=== PATIENT | female | born 1960 | race Caucasian/White ===

== ENCOUNTER → 2016-09-09 | Outpatient (CLI) | payer BC ==
[2016-09-09 09:33] LABS: Basophils % (A) 1 %; CH 28.8; CHCM 33.4; Eosinophils # (A) 0.2 k/uL (0-0.7); Eosinophils % (A) 3 %; HCT 43.1 % (34.0-46.0); HDW 2.52; HGB 14.2 gm/dL (11.4-16.0); Luc # (Auto) 0.14; Luc % (Auto) 3; Lymphocytes % (A) 37 %; MCH 28.6 pg (25.0-35.0); MCV 86.7 fL (80.0-100.0); Monocytes # (A) 0.2 k/uL (0-1.0); Monocytes % (A) 4 %; Neutrophils # (A) 2.9 k/uL (1.3-7.7); Neutrophils % (A) 52 %; RBC 4.98 m/uL (3.80-5.40); RDW 12.9 % (11.5-15.5); WBC 5.5 k/uL (3.8-10.6); WBC (Perox) 5.62
[2016-09-09 10:14] LABS: Anion Gap 13 mmol/L; Blood Urea Nitrogen 18 mg/dL (7-17); Calcium 9.5 mg/dL (8.4-10.2); Carbon Dioxide 25 mmol/L (22-30); Chloride 106 mmol/L (98-107); Glucose 97 mg/dL (74-99); Non-African American GFR(MDRD) >60 (>60 ml/min/1.73 sqM); Potassium 4.2 mmol/L (3.5-5.1); Sodium 144 mmol/L (137-145); Total Protein 7.6 g/dL (6.3-8.2)
[2016-09-09 10:15] LABS: ALT 33 U/L (9-52); AST 21 U/L (14-36); Alkaline Phosphatase 67 U/L (38-126); Cholesterol 245 mg/dL (<200); HDL Cholesterol 53 mg/dL (40-60); Total Bilirubin 0.9 mg/dL (0.2-1.3); Triglycerides 121 mg/dL (<150)
== END | disposition home or self-care (01) ==
LOC: LABWHC1 08:31
PROVIDERS: ATTEND Family Medicine
DX: E78.5 Hyperlipidemia, unspecified (principal); I10 Essential (primary) hypertension
CPT/HCPCS: 36415; 80053; 80061; 84443; 85025

== ENCOUNTER → 2016-09-14 | Outpatient (CLI) | payer BC ==
--- NOTE | 2016-09-14 10:27 | EST ---
DATE OF SERVICE: 09/14/2016 AGE: 56Y SEX: F HT: 5'3" WT: 155 lbs. Protocol Surya: X Other: Cardiolite Stage: III Dur. of Exercise: 7 minutes *Heart Rate Blood Pressure *Rest: 82 Rest: 149/97 * *Max. Achieved: 146 Maximum BP: 190/94 85% PMHR: 139 100% PMHR: 163 *METS: 8.5 INDICATION: Chest pain. MEDICATIONS: See list. Stress data: Pretesting physical examination showed the heart rate 82, blood pressure is 149/97 mmHg. Baseline EKG showed sinus rhythm. The patient exercised on treadmill according Surya Protocol for a total of 7 minutes and achieved 8.5 METs. Max heart rate was 146, which is about 90% of maximum predicted heart rate. Maximum blood pressure was 190/94 mmHg. Clinically, the patient did not have any symptoms and the EKG did not show any significant ST or T wave abnormalities consistent with ischemia. CONCLUSION: 1. Good exercise capacity. 2. Normal EKG in response to exercise. 3. Please follow up on the Cardiolite portion on a separate report from the radiology department.
--- NOTE | 2016-09-14 10:32 | NM ---
EXAMINATION TYPE: NM stress cardiolite complete DATE OF EXAM: 09/14/2016 10:09 AM COMPARISON: NONE HISTORY: History of hypertension and family history of coronary artery disease presents with chest an d left arm pain TECHNIQUE: After the intravenous administration of 10.55 mCi Tc 99m Sestamibi - Rest images obtained 45 minutes post injection. The patient exercised using a COLTEN protocol and 1 minute prior to peak exercise was injected with 27.3 mCi Tc 99m Sestamibi - Stress images obtained 15 minutes post inject ion. FINDINGS: Targeted heart rate was achieved during performance of the study. Review of stress and rest SPECT danielle ges demonstrates no distinct perfusion abnormality. Gated analysis shows normal wall motion with an estimated left ventricular ejection fraction of greater than 70 %. IMPRESSION: No scintigraphic evidence for reversible ischemia
== END | disposition home or self-care (01) ==
LOC: RADNMMAIN 07:43
PROVIDERS: ATTEND Family Medicine
DX: M79.622 Pain in left upper arm (principal); E78.5 Hyperlipidemia, unspecified; I10 Essential (primary) hypertension
CPT/HCPCS: 93017; 78452; A9500

== ENCOUNTER → 2017-08-05 | Outpatient (CLI) | payer BC ==
--- NOTE | 2017-08-05 09:48 | MM ---
Reason for exam: additional evaluation requested from abnormal screening. Last mammogram was performed 1 month ago. History: Patient is postmenopausal and had first child at age 33. Physical Findings: Nurse did not find any significant physical abnormalities on exam. MG Work Up Mamm w CAD LT Spot compression CC, spot compression MLO, and LM view(s) were taken of the left breast. Prior study comparison: July 20, 2017, bilateral MG screening mammo w CAD. July 19, 2016, right breast MG work up mamm w CAD RT. Finding: There is a 8 mm obscured oval mass in the middle, central position of the left breast that persists on additonal views. These results were verbally communicated with the patient and result sheet given to the patient on 08/05/17. ASSESSMENT: Incomplete: need additional imaging evaluation, BI-RAD 0 RECOMMENDATION: Ultrasound of the left breast.
--- NOTE | 2017-08-05 09:51 | USB ---
Reason for exam: additional evaluation requested from abnormal screening. History: Patient is postmenopausal and had first child at age 33. US Breast Workup Limited LT Left breast ultrasound demonstrates a 0.4 x 0.4 x 0.4cm round, cystic lesion at 12 o'clock, likely not correlate but mammographic abnormality has been present since 2011. These results were verbally communicated with the patient and result sheet given to the patient on 08/05/17. ASSESSMENT: Benign, BI-RAD 2 RECOMMENDATION: Return to routine screening mammogram schedule for both breasts.
== END | disposition home or self-care (01) ==
LOC: RADMAMWWP 06:54
PROVIDERS: ATTEND Obstetrics & Gynecology
DX: R92.8 Other abnormal and inconclusive findings on diagnostic imaging of breast (principal)
CPT/HCPCS: 76642; G0206

== ENCOUNTER → 2018-09-14 | Outpatient (CLI) | payer BC ==
--- NOTE | 2018-09-15 13:56 | MM ---
Reason for exam: screening (asymptomatic). Last mammogram was performed 1 year and 1 month ago. History: Patient is postmenopausal and had first child at age 33. Physical Findings: A clinical breast exam by your physician is recommended on an annual basis and results should be correlated with mammographic findings. MG Screening Mammo w CAD Bilateral CC and MLO view(s) were taken. Prior study comparison: August 05, 2017, left breast MG work up mamm w CAD LT. July 20, 2017, bilateral MG screening mammo w CAD. The breast tissue is heterogeneously dense. This may lower the sensitivity of mammography. No suspicious abnormality. No significant changes when compared with prior studies. ASSESSMENT: Negative, BI-RAD 1 RECOMMENDATION: Routine screening mammogram of both breasts in 1 year.
== END | disposition home or self-care (01) ==
LOC: RADMAMWWP 14:14
PROVIDERS: ATTEND Obstetrics & Gynecology
DX: Z12.31 Encounter for screening mammogram for malignant neoplasm of breast (principal)
CPT/HCPCS: 77067

== ENCOUNTER → 2019-09-20 | Outpatient (CLI) | payer BC ==
--- NOTE | 2019-09-24 09:03 | MM ---
Reason for exam: screening (asymptomatic). Last mammogram was performed 1 year ago. History: Patient is postmenopausal and had first child at age 33. Physical Findings: A clinical breast exam by your physician is recommended on an annual basis and results should be correlated with mammographic findings. MG Screening Mammo w CAD Bilateral CC and MLO view(s) were taken. Prior study comparison: September 14, 2018, bilateral MG screening mammo w CAD. August 05, 2017, left breast MG work up mamm w CAD LT. The breast tissue is heterogeneously dense. This may lower the sensitivity of mammography. Focal asymmetry left upper outer quadrant anterior position. This finding is changed when compared with previous exams. ASSESSMENT: Incomplete: need additional imaging evaluation, BI-RAD 0 RECOMMENDATION: Special view mammogram of the left breast. If lesion persists on supplemental views, image directed ultrasound is recommended. [facility] will attempt to contact patient to return for supplemental views and ultrasound if indicated.
== END | disposition home or self-care (01) ==
LOC: RADMAMWWP 10:47
PROVIDERS: ATTEND Obstetrics & Gynecology
DX: Z12.31 Encounter for screening mammogram for malignant neoplasm of breast (principal)
CPT/HCPCS: 77067

== ENCOUNTER → 2019-09-28 | Outpatient (CLI) | payer BC ==
--- NOTE | 2019-10-01 09:02 | MM ---
Reason for exam: additional evaluation requested from abnormal screening. Last mammogram was performed less than 1 month ago. History: Patient is postmenopausal and had first child at age 33. Physical Findings: Nurse did not find any significant physical abnormalities on exam. MG Work Up Mamm w CAD LT Spot compression CC, spot compression MLO, and ML view(s) were taken of the left breast. Prior study comparison: September 20, 2019, bilateral MG screening mammo w CAD. September 14, 2018, bilateral MG screening mammo w CAD. The breast tissue is heterogeneously dense. This may lower the sensitivity of mammography. There is no discrete abnormality including area of concern left upper outer quadrant anterior on compression. These results were verbally communicated with the patient and result sheet given to the patient on 09/28/19. ASSESSMENT: Probably benign, BI-RAD 3 RECOMMENDATION: Follow-up diagnostic mammogram of the left breast in 6 months.
== END | disposition home or self-care (01) ==
LOC: RADMAMWWP 13:29
PROVIDERS: ATTEND Obstetrics & Gynecology
DX: R92.8 Other abnormal and inconclusive findings on diagnostic imaging of breast (principal)
CPT/HCPCS: 77065

== ENCOUNTER → 2020-06-10 | Outpatient (CLI) | payer BC ==
--- NOTE | 2020-06-10 08:52 | MM ---
Reason for exam: follow-up at short interval from prior study. Last mammogram was performed 8 months ago. History: Patient is postmenopausal and had first child at age 33. Took hormonal contraceptives for 10 years. Physical Findings: Nurse did not find any significant physical abnormalities on exam. MG 3D Diag Mammo W/Cad LT CC and MLO view(s) were taken of the left breast. Prior study comparison: September 28, 2019, left breast MG work up mamm w CAD LT. September 20, 2019, bilateral MG screening mammo w CAD. There are scattered fibroglandular densities. Lateral anterior central asymmetric density remains more pronounced from older priors but stable for 6 months. Continued short term follow up recommended. These results were verbally communicated with the patient and result sheet given to the patient on 06/10/20. ASSESSMENT: Probably benign, BI-RAD 3 RECOMMENDATION: Follow-up diagnostic mammogram of both breasts in 6 months.
== END | disposition home or self-care (01) ==
LOC: RADMAMWWP 08:11
PROVIDERS: ATTEND Obstetrics & Gynecology
DX: R92.8 Other abnormal and inconclusive findings on diagnostic imaging of breast (principal)
CPT/HCPCS: 77061; 77065

== ENCOUNTER → 2021-01-09 | Outpatient (CLI) | payer BC ==
--- NOTE | 2021-01-09 11:17 | MM ---
Reason for exam: screening (asymptomatic). Last mammogram was performed 7 months ago. History: Patient is postmenopausal and had first child at age 33. Took hormonal contraceptives for 10 years. Physical Findings: A clinical breast exam by your physician is recommended on an annual basis and results should be correlated with mammographic findings. MG 3D Screening Mammo W/Cad Bilateral CC and MLO view(s) were taken. Prior study comparison: June 10, 2020, left breast MG 3d diag mammo w/cad LT. September 28, 2019, left breast MG work up mamm w CAD LT. The breast tissue is heterogeneously dense. This may lower the sensitivity of mammography. There is no discrete abnormality. ASSESSMENT: Negative, BI-RAD 1 RECOMMENDATION: Routine screening mammogram of both breasts in 1 year.
== END | disposition home or self-care (01) ==
LOC: RADMAMWWP 07:17
PROVIDERS: ATTEND Obstetrics & Gynecology
DX: Z12.31 Encounter for screening mammogram for malignant neoplasm of breast (principal)
CPT/HCPCS: 77063; 77067

== ENCOUNTER → 2022-01-25 | Outpatient (CLI) | payer BC ==
--- NOTE | 2022-01-25 08:40 | BD ---
EXAMINATION TYPE: Axial Bone Density DATE OF EXAM: 01/25/2022 COMPARISON: 06/30/2015 CLINICAL HISTORY: 61 years year old Female. ICD-10 CODE: Z780 POST MENOPAUSAL WITHOUT HRT Height: 61.5 IN Weight: 169 LBS RISK FACTORS HISTORY OF: Active: YES Diet low in dairy products/other sources of calcium: YES Postmenopausal woman: AGE 49 MEDICATIONS: Additional Medications: VIT D, MULTI VIT, CHOLESTEROL MEDS, BLOOD PRESSURE MEDS, EFE ASPIRIN EXAM MEASUREMENTS: Bone mineral densitometry was performed using the [employer] ([employer]) System. Bone mineral density as measured about the Lumbar spine is: ----- L1-L4(G/cm2): 1.102 T Score Values are as follows: ----- L1: -1.2 ----- L2: -0.4 ----- L3: -0.3 ----- L4: -0.8 ----- L1-L4: -0.6 Bone mineral density has: Increased 1.6% since study of: 06/30/2015 Bone mineral density about the R hip (g/cm2): 0.834 Bone mineral density about the L hip (g/cm2): 0.752 T Score values are as follows: -----R Neck: -1.5 -----L Neck: -2.1 -----R Total: -0.8 -----L Total: -1.2 Bone mineral density has: Decreased -5.1% since study of: 06/30/2015 FRAX%s: The graph provided illustrates a 10.1 chance for a major osteoporotic fx and a 1.4 chance for the hips probability for fx in 10 years time. IMPRESSION: Osteopenia (T Score between -2.5 and -1). There is slightly increased risk of fracture and the patient may be considered for treatment. Re-Screen 2-5 years. NOTE: T-SCORE=SD OF THE YOUNG ADULT MEAN.
--- NOTE | 2022-01-26 09:29 | MM ---
Reason for Exam: Screening (asymptomatic). Last screening mammogram was performed 12 month(s) ago. Patient History: Menarche at age 10. First Full-Term at age 33. Late child-bearing (after 30). Postmenopausal. Patient has history of breast feeding. Patient used Hormonal Contraceptives for 10 years. Risk Values: Chela 5 year model risk: 2.3%. NCI Lifetime model risk: 10.3%. Prior Study Comparison: 09/28/2019 Left Diagnostic Mammogram, [facility]. 06/10/2020 Left Diagnostic Mammogram, [facility]. 01/09/2021 Bilateral Screening Mammogram, [facility]. Tissue Density: The breast tissue is heterogeneously dense. This may lower the sensitivity of mammography. Findings: Analyzed By CAD. There is no suspicious group of microcalcifications or new suspicious mass in either breast. Benign calcifications noted. Overall Assessment: Benign, BI-RAD 2 Management: Screening Mammogram of both breasts in 1 year. A clinical breast exam by your physician is recommended on an annual basis and results should be correlated with mammographic findings. Electronically signed and approved by: Forrest Kim M.D. Radiologis
== END | disposition home or self-care (01) ==
LOC: RADMAMWWP 06:52
PROVIDERS: ATTEND Obstetrics & Gynecology
DX: Z12.31 Encounter for screening mammogram for malignant neoplasm of breast (principal); Z78.0 Asymptomatic menopausal state
CPT/HCPCS: 77063; 77067; 77080

== ENCOUNTER → 2023-01-26 | Outpatient (CLI) | payer BC ==
--- NOTE | 2023-01-26 17:17 | MM ---
Reason for Exam: Screening (asymptomatic). Last screening mammogram was performed 12 month(s) ago. Patient History: Menarche at age 10. First Full-Term at age 33. Late child-bearing (after 30). Postmenopausal. Patient has history of breast feeding. Patient used Hormonal Contraceptives for 10 years. Risk Values: Chela 5 year model risk: 2.4%. NCI Lifetime model risk: 10.0%. Prior Study Comparison: 06/10/2020 Left Diagnostic Mammogram, [facility]. 01/09/2021 Bilateral Screening Mammogram, [facility]. 01/25/2022 Bilateral MG 3D screening mammo w/cad, [facility]. Tissue Density: The breast tissue is heterogeneously dense. This may lower the sensitivity of mammography. Findings: Analyzed By CAD. Pattern appears symmetrical and stable. No significant interval change is present. No suspicious groups of microcalcifications, spiculated or lobular masses, architectural distortion or other secondary signs of malignancy are mammographically apparent. Overall Assessment: Benign, BI-RAD 2 Management: Screening Mammogram of both breasts in 1 year. A negative mammogram report should not preclude additional follow up of suspicious palpable abnormalities. Patient should continue monthly self breast exam. A clinical breast exam by your physician is recommended on an annual basis and results should be correlated with mammographic findings. Electronically signed and approved by: Jeramie Waggoner D.O. Radiologis
== END ==
LOC: RADMAMWWP 07:16
PROVIDERS: ATTEND Obstetrics & Gynecology
DX: Z12.31 Encounter for screening mammogram for malignant neoplasm of breast (principal); Z78.0 Asymptomatic menopausal state
CPT/HCPCS: 77063; 77067

== ENCOUNTER → 2024-01-30 | Outpatient (CLI) | payer BC ==
--- NOTE | 2024-01-31 13:45 | BD ---
EXAMINATION TYPE: Axial Bone Density DATE OF EXAM: 01/30/2024 CLINICAL HISTORY: 63 years old Female. ICD-10 CODE: M85.80 OT DISRD OF BONE DENSITY Height: 61.5 Weight: 161.3 FRAX RISK QUESTIONS: Alcohol (3 or more units per day): no Family History (Parent hip fracture): no Glucocorticoids (More than 3mos): no (Ex: prednisone, prednisolone, methylprednisolone, dexamethasone, and hydrocortisone). History of Fracture in Adulthood: no Secondary Osteoporosis: 1. Type 1 Diabetes: no 2. Hyperthyroidism: no 3. Menopause before 45: no 4. Malnutrition: no 5. Chronic liver disease: no Rheumatoid Arthritis: no Current Tobacco Use: no RISK FACTORS HISTORY OF: Hip Fracture (Right/Left): no Spine Fracture: no History of Wrist Fracture: no Surgery to Spine/Hip(right/left)/Wrist (right/left): no MEDICATIONS: Thyroid Medications: no Osteoporosis Medications: no EXAM MEASUREMENTS: Bone mineral densitometry was performed using the [employer] System. Bone mineral density as measured about the Lumbar spine is: ----- L1-L4(G/cm2): 1.075 T Score Values are as follows: ----- L1: -0.8 ----- L2: -0.9 ----- L3: -1.0 ----- L4: -1.0 ----- L1-L4: -0.9 Z Score Values are as follows: ----- L1: 0.5 ----- L2: 0.4 ----- L3: 0.3. ----- L4: 0.3 ----- L1-L4: 0.4 Bone mineral density has: decreased -2.5 % since study of: 01/25/2022 Bone mineral density about the R hip (g/cm2): 0.924 Bone mineral density about the L hip (g/cm2): 0.851 T Score values are as follows: -----R Neck: -1.5 -----L Neck: -2.0 -----R Total: -0.7 -----L Total: -1.2 Z Score values are as follows: -----R Neck: -0.3 -----L Neck: -0.7 -----R Total: 0.3 -----L Total: -0.3 Bone mineral density has: increased 1.1 % since study of: 01/25/2022 FRAX%s: The graph provided illustrates a 10.3% chance for a major osteoporotic fx and a 1.5% chance f or the hips probability for fx in 10 years time. IMPRESSION: Osteopenia (T Score between -2.5 and -1). There is slightly increased risk of fracture and the patient may be considered for treatment. Re-Screen 2-5 years. NOTE: T-SCORE=SD OF THE YOUNG ADULT MEAN.
--- NOTE | 2024-01-31 18:04 | MM ---
Reason for Exam: Screening (asymptomatic). Last screening mammogram was performed 12 month(s) ago. Patient History: Menarche at age 10. First Full-Term at age 33. Late child-bearing (after 30). Postmenopausal. Patient has history of breast feeding. Patient used Hormonal Contraceptives for 10 years. Risk Values: Chela 5 year model risk: 2.4%. NCI Lifetime model risk: 9.7%. Prior Study Comparison: 01/09/2021 Bilateral Screening Mammogram, [facility]. 01/25/2022 Bilateral MG 3D screening mammo w/cad, [facility]. 01/26/2023 Bilateral MG 3D screening mammo w/cad, [facility]. Tissue Density: There are scattered areas of fibroglandular density. Findings: Analyzed By CAD. Unchanged asymmetric density posterior outer aspect of the right breast on the cc view. Chronic nodularity central posterior left cc view. There is no suspicious group of microcalcifications or new suspicious mass in either breast. Overall Assessment: Benign, BI-RAD 2 Management: Screening Mammogram of both breasts in 1 year. . Patient should continue monthly self-breast exams. A clinical breast exam by your physician is recommended on an annual basis. This exam should not preclude additional follow-up of suspicious palpable abnormalities. Note on Chela scores and lifetime risk: 1. A Chela score greater than 3% is considered moderate risk. If this is the case, consider specialist referral to assess eligibility for a risk reducing agent. 2. If overall lifetime risk for the development of breast cancer is 20% or higher, the patient may qualify for future screening with alternating mammogram and breast MRI. Electronically signed and approved by: Zaida Ivey M.D. Radiologist
== END | disposition home or self-care (01) ==
LOC: RADMAMWWP 08:54
PROVIDERS: ATTEND Family Medicine
DX: Z12.31 Encounter for screening mammogram for malignant neoplasm of breast (principal); M85.88 Other specified disorders of bone density and structure, other site; Z78.0 Asymptomatic menopausal state
CPT/HCPCS: 77063; 77067; 77080

== ENCOUNTER → 2025-02-21 | Outpatient (CLI) | payer BC ==
--- NOTE | 2025-02-22 08:00 | MM ---
Reason for Exam: Screening (asymptomatic). Last mammogram was performed 1 year(s) and 1 month(s) ago. Patient History: Menarche at age 10. First Full-Term at age 33. Late child-bearing (after 30). Postmenopausal. Patient has history of breast feeding. Patient used Hormonal Contraceptives for 10 years. Risk Values: Chela 5 year model risk: 2.5%. NCI Lifetime model risk: 9.4%. Prior Study Comparison: 01/25/2022 Bilateral MG 3D screening mammo w/cad, [facility]. 01/26/2023 Bilateral MG 3D screening mammo w/cad, [facility]. 01/30/2024 Bilateral MG 3D screening mammo w/cad, [facility]. Tissue Density: The breasts are heterogeneously dense, which may obscure small masses. Findings: Analyzed By CAD. No suspicious grouped calcifications. There is a nodular density measuring 10 mm in the subareolar portion of the left breast. Recommend spot compression view. Additional stable chronic nodularity in the left breast posteriorly. Overall Assessment: Incomplete: need additional imaging evaluation, BI-RAD 0 Management: Special View Mammogram of the left breast. . Patient should continue monthly self-breast exams. A clinical breast exam by your physician is recommended on an annual basis. This exam should not preclude additional follow-up of suspicious palpable abnormalities. Note on Chela scores and lifetime risk: 1. A Chela score greater than 3% is considered moderate risk. If this is the case, consider specialist referral to assess eligibility for a risk reducing agent. 2. If overall lifetime risk for the development of breast cancer is 20% or higher, the patient may qualify for future screening with alternating mammogram and breast MRI. [facility], , 02/22/2025 7:56 AM. Electronically signed and approved by: Forrest Kim M.D. Radiologis
== END | disposition home or self-care (01) ==
LOC: RADMAMWWP 16:15
PROVIDERS: ATTEND Family Medicine
DX: Z12.31 Encounter for screening mammogram for malignant neoplasm of breast (principal); R92.333 Mammographic heterogeneous density, bilateral breasts; Z78.0 Asymptomatic menopausal state; Z92.0 Personal history of contraception
CPT/HCPCS: 77063; 77067

== ENCOUNTER → 2025-02-26 | Outpatient (CLI) | payer BC ==
--- NOTE | 2025-02-26 08:45 | MM ---
Reason for Exam: Additional evaluation requested from abnormal screening. Last screening mammogram was performed less than 1 month ago. Patient History: Menarche at age 10. First Full-Term at age 33. Late child-bearing (after 30). Postmenopausal. Patient has history of breast feeding. Patient used Hormonal Contraceptives for 10 years. Risk Values: Chela 5 year model risk: 2.5%. NCI Lifetime model risk: 9.4%. Prior Study Comparison: 01/26/2023 Bilateral MG 3D screening mammo w/cad, [facility]. 01/30/2024 Bilateral MG 3D screening mammo w/cad, [facility]. 02/21/2025 Bilateral MG 3D screening mammo w/cad, [facility]. Tissue Density: Left: The breasts are heterogeneously dense, which may obscure small masses. Findings: Analyzed By CAD. Small mass measuring 10 mm approximately 2.7 cm from nipple in the retroareolar region posterior nipple line on CC view and slightly inferior MLO. Overall Assessment: Incomplete: need additional imaging evaluation, BI-RAD 0 Management: Diagnostic Breast Ultrasound of the left breast. Results were given to the patient verbally at the time of exam. Patient should continue monthly self-breast exams. A clinical breast exam by your physician is recommended on an annual basis. This exam should not preclude additional follow-up of suspicious palpable abnormalities. Note on Chela scores and lifetime risk: 1. A Chela score greater than 3% is considered moderate risk. If this is the case, consider specialist referral to assess eligibility for a risk reducing agent. 2. If overall lifetime risk for the development of breast cancer is 20% or higher, the patient may qualify for future screening with alternating mammogram and breast MRI. [facility], , 02/26/2025 8:43 AM. Electronically signed and approved by: Roly Kim DO
--- NOTE | 2025-02-26 09:14 | USB ---
Reason for Exam: Additional evaluation requested from abnormal screening. Patient History: Menarche at age 10. First Full-Term at age 33. Late child-bearing (after 30). Postmenopausal. Patient has history of breast feeding. Patient used Hormonal Contraceptives for 10 years. Risk Values: Chela 5 year model risk: 2.5%. NCI Lifetime model risk: 9.4%. Technique: Method: Targeted. Prior Study Comparison: 01/26/2023 Bilateral MG 3D screening mammo w/cad, [facility]. 01/30/2024 Bilateral MG 3D screening mammo w/cad, [facility]. 02/21/2025 Bilateral MG 3D screening mammo w/cad, [facility]. Findings: The lower outer quadrant of the left breast, the axilla of the left breast and the retroareolar of the left breast were scanned. Technique utilized:US breast workup limited LT Image; Ultrasound imaging of: Area of concern, retroareolar region and axilla. 2 anechoic cysts at 4:00 2 cm from the nipple measuring up to 8 mm. No solid suspicious mass. Overall Assessment: Benign, BI-RAD 2 Management: Screening Mammogram of both breasts in 1 year. A clinical breast exam by your physician is recommended on an annual basis and results should be correlated with mammographic findings. This exam should not preclude additional follow-up of suspicious palpable abnormalities. Results were given to the patient verbally at the time of exam. [facility], , 02/26/2025 9:11 AM. Electronically signed and approved by: Roly Kim DO
== END | disposition home or self-care (01) ==
LOC: RADMAMWWP 08:20
PROVIDERS: ATTEND Family Medicine
DX: R92.8 Other abnormal and inconclusive findings on diagnostic imaging of breast (principal); R92.332 Mammographic heterogeneous density, left breast; Z78.0 Asymptomatic menopausal state; Z92.0 Personal history of contraception
CPT/HCPCS: 77061; 77065